=== PATIENT | male | born 1970 | race Caucasian/White ===

== ENCOUNTER 2018-03-05 16:48 | Observation (INO) ==
--- NOTE | 2018-03-05 16:59 | ERNOTE ---
Date of Service: 03/05/18 Time Seen by Provider: 03/05/18 16:59 Stated Complaint: cough/back pain Source: patient, family Exam Limitations: no limitations Immunizations: IMMUNIZATION HX Immunizations Up to Date Yes History of Influenza Vaccine No Hx Pneumococcal Vaccination No Allergies/Adverse Reactions: Allergies No Known Allergies Allergy (Verified 03/05/18 18:54) Home Medications: HOME MEDICATIONS aspirin 81 mg tablet,delayed release 81 mg PO DAILY #30 tab 12/11/17 [Last Taken 03/05/18 07:00] sertraline 50 mg tablet 50 mg PO DAILY #30 tab 12/11/17 [Last Taken 03/03/18 21:00] atorvastatin 40 mg tablet 40 mg PO DAILY #30 tab 02/27/18 [Last Taken Unknown] meloxicam 7.5 mg tablet 7.5 mg PO DAILY PRN #30 tab 02/27/18 [Last Taken 03/05/18 07:00] omega-3 fatty acids-fish oil 360 mg-1,200 mg capsule 2 cap PO DAILY 02/27/18 [Last Taken 03/05/18 07:00] - Pain Score Pain Score #1 Pain Score: 3 - History of Present Ilness Narrative: The patient is a 47 year old male who presents for sternal chest pain which has been present since 1100 today. There are associated symptoms of mid back pain and fatigue. The patient reports pain as heaviness or pressure to sternal chest, 3/10. There are no alleviating factors. There are no aggravating factors. Previous treatments have included: none. The past medical history includes: HTN, arthritis, HLD, low testosterone and hypertriglyceridemia. The social history is positive for current smoke and chew tobacco. The patient has had no ill contacts. Patient states pain began today while at work, patient denies injury or strenuous activity. Patient states pain began to left medial breast and then seemed to move to right medial breast and overlying sternum. Patient states that pain seems to radiate through to middle of back. Patient states he has also has symptoms of lightheadedness, denies near syncope. Patient also fatigued, states flattened affect is not typical for patient. Timing: constant Frequency/Possible Cause: Reports: no prior episodes Modifying Factors - Improves: Reports: nothing Modifying Factors - Worsens: Reports: nothing Associated Symptoms: Reports: chest pain/soreness, cough - intermittent, shortness of breath, lightheadedness. Denies: nasal congestion, nasal drainage, headache, sore throat, fever/chills Review of Systems - Review of Systems Constitutional: Present: fatigue. Absent: recent illness, fever EYE: Present: no symptoms reported. Absent: vision changes ENT: Present: no symptoms reported. Absent: ear pain, nasal drainage, sore throat Respiratory: Present: shortness of breath, cough Cardiology: Present: chest pain. Absent: syncope, edema Gastrointestinal/Abdominal: Present: no symptoms reported. Absent: nausea, vomiting, diarrhea, abdominal pain Genitourinary: Present: no symptoms reported. Absent: frequency, dysuria Musculoskeletal: Present: back pain. Absent: neck pain Skin: Present: no symptoms reported. Absent: rash Neurological: Present: dizziness/light-headedness. Absent: weakness, numbness Endocrine: Present: no symptoms reported Hematologic/Lymphatic: Present: no symptoms reported Psych: Present: no symptoms reported All Other Systems: All systems neg except as marked Medical History (Last Reviewed 03/05/18 @ 17:14 by JASPREET Nguyen) Arthritis HTN (hypertension) Hyperlipidemia Hypertriglyceridemia Hypogonadism in male Low testosterone in male Palsy, Martinez's Surgical History: Surgical History (Last Reviewed 03/05/18 @ 17:14 by JASPREET Nguyen) H/O arthroscopic knee surgery History of hernia repair Family History: Family History (Last Reviewed 03/05/18 @ 17:14 by JASPREET Nguyen) Mother CKD (chronic kidney disease), stage III Heart disease Diabetes Father Alive and well Social History: Preferred Language Citizen Of [place] Do you have any orthodox or No cultural preference? Smoking Status Current every day smoker Have you smoked in the past 12 Yes months Do you dip or chew tobacco Yes Abuse History No History of abuse Psych History No pertinent hx Alcohol Use rarely Drug Use none Physical Exam - Physical Exam General Appearance: Present: wd/wn, alert, no apparent distress, obese Head Exam: Present: normal inspection Eye Exam: Normal inspection: bilateral, PERRL: bilateral, EOMI: bilateral Ears, Nose, Throat: Present: normal ENT inspection, normal pharynx, other - tobacco residue to oral mucosa Neck: Present: normal inspection, nontender Respiratory: Present: no respiratory distress, normal breath sounds, lungs clear, chest tenderness - mild over sternum Cardiovascular/Chest: Present: regular rate, rhythm, no murmur Gastrointestinal/Abdominal: Present: normal bowel sounds, nontender, soft, no organomegaly, other - abdominal obesity Back Exam: Present: no vertebral tenderness Extremity Exam: Absent: pedal edema, calf tenderness Neurological Exam: Present: alert, oriented, normal mood/affect Skin Exam: Present: normal color, warm/dry ED Progress - Date and Time Seen: Date and Time: 03/05/2018 18:00 Patient reports sternal chest pain, 09/27. Will attempt Nitro. 03/05/18 18:08 Discussed with complaint of findings, plan for observation admission for chest pain. - Results and Orders Patient's Lab Results:: I have reviewed the patient's lab results. - Vital Signs Patient's Vital Signs:: I have reviewed the patient's vital signs. Vital Signs: Vital Signs 03/05/18 16:49 Temperature 36.5 C Pulse Rate 81 Respiratory Rate 14 Blood Pressure 126/83 O2 Sat by Pulse Oximetry 97 - EKG EKG: NSR EKG read: Reviewed by me EKG Comments: Reviewed with . - X-Ray X-Ray #1 X-Ray: chest Interpretation: Reviewed by me X-ray Comments: No acute cardiopulmonary abnormality. - Progress/Reassessment Chief Complaint: Cough Departure Clinical Impression: Chest pain Qualifiers: Chest pain type: unspecified Qualified Code(s): R07.9 - Chest pain, unspecified - Departure Disposition: Still a patient Condition: Stable
[2018-03-05] MEDS ORDERED: ASPIRIN 81 MG TAB.CHEW PO ONE (17:12)
[2018-03-05] MEDS ORDERED: ASPIRIN 81 MG TAB.CHEW ONE (17:17)
[2018-03-05 17:26] LABS: Hematocrit 44.8 % (42.0-52.0); Hemoglobin 14.8 gm/dL (13.5-18.0); Mean Corpuscular Hemoglobin 29.7 pg (27-31); Mean Platelet Volume 9.7 fl (8-11.3); Neutrophil # 6.7 K/mm3 (1.3-6.0); Neutrophil % 72.3 % (42-75.0); Platelet Count 189 K/mm3 (150-450); Red Blood Count 4.98 M/mm3 (4.7-6.0); Red Cell Distribution Width 13.2 % (11.5-14.0); White Blood Count 9.3 K/mm3 (4.0-10.5)
[2018-03-05 17:38] LABS: Prothrombin Time (Patient) 10.2 Seconds (9.0-11.0)
[2018-03-05 17:44] LABS: ALT 39 U/L (19-67); AST 23 U/L (0-48); Albumin * 3.9 gm/dl (3.4-5.0); Alkaline Phosphatase * 70 U/L (50-170); Anion Gap 9.2 mmol/L (6.8-13.8); BUN/Creatinine Ratio 18.2 (9.0-21.6); Bilirubin, Total 0.4 mg/dL (0.0-1.1); Blood Urea Nitrogen 18 mg/dL (6-23); Ca. Corrected For Albumin 8.6 mg/dL (8.4-10.2); Calcium * 8.8 mg/dL (7.9-10.9); Carbon Dioxide 26.5 mmol/L (24-32.6); Chloride 98 mmol/L (97-106); Glucose * 98 mg/dL (70-110); Potassium 3.7 mmol/L (3.4-4.6); Sodium 130 mmol/L (132-142); Total Protein 7.8 gm/dL (6.2-8.2)
[2018-03-05 17:45] LABS: Troponin I Less than 0.017 ng/mL (0.00-0.10)
[2018-03-05 17:49] LABS: INR 1.02 INR (0.90-1.10)
[2018-03-05] MEDS ORDERED: NITROGLYCERIN 0.4 MG/TAB BTL SL ONE (18:04)
--- NOTE | 2018-03-05 22:14 | HP ---
Chief Complaint - Chief Complaint Date of Service: 03/05/18 Time of Service: 21:30 Chief Complaint: Chest Pain, shortness of breath History of Present Illness: Rohit is a 47 yo male with significant cardiovascular risk factors of tobacco use, HTN, HLP, and first generation family hx of CAD (sister, mom). He began having left medial chest wall pain at around 11AM today. Pain moved to right chest and also into his back. He reports no exacerbating or alleviating factors. He continued to have chest heaviness over the noon hour and presented to the [facility] ER for further evaluation. He was given ASA and nitro in the ER which he reports helped to improve pain. Initial work up in the ER was negative for acute findings with normal EKG, chest xray, and labs. He reports he also had shortness of breath, diaphoresis, and fatigue. He denies change in medication, sick contacts, or change in activity. The only change from his routine was that at work yesterday they were using a process to clean the pain off plastic barrels which he reports caused a strong odor that made him feel ill. He also reports to having GERD and heartburn, but they do not usually feel like this. Medical History (Last Reviewed 03/05/18 @ 18:54 by Joselyn Segal RN) Arthritis HTN (hypertension) Hyperlipidemia Hypertriglyceridemia Hypogonadism in male Low testosterone in male Palsy, Martinez's Surgical History: Surgical History (Last Reviewed 03/05/18 @ 18:54 by Joselyn Segal RN) H/O arthroscopic knee surgery History of hernia repair Family History: Family History (Last Updated 03/05/18 @ 22:55 by Emmanuel Felix DO) Mother Diabetes CKD (chronic kidney disease), stage III Heart disease Father Alive and well Sister Myocardial infarction Social History: Patient Lives/Resources With Spouse Utilized Occupation receiver/laborer Preferred Language Montenegrin Do you have any episcopal or Yes: Oriental Orthodox cultural preference? Smoking Status Current every day smoker Have you smoked in the past 12 Yes months Do you dip or chew tobacco Yes Abuse History No History of abuse Psych History No pertinent hx Alcohol Use rarely Drug Use none Smokes 2-3 cigarettes/day Chews 3/4 can/day Review Of Systems (GEN) - Review of Systems Generalized/Overall Review: Present: Weakness, Diaphoresis, Fatigue. Absent: Chills, Fever EENTM: Present: No Symptoms Reported Respiratory: Present: Shortness of Breath. Absent: Cough Cardiac: Present: Chest Pain, Edema. Absent: Palpitations, Syncope Abdominal: Absent: Nausea, Vomiting, Abdominal Pain, Constipation, Diarrhea Genitourinary: Present: No Symptoms Reported Musculoskeletal: Present: No Symptoms Reported Neurological: Present: No Symptoms Reported Skin: Present: No Symptoms Reported Immunizations: IMMUNIZATION HX Immunizations Up to Date Yes History of Influenza Vaccine No Hx Pneumococcal Vaccination No Allergies/Adverse Reactions: Allergies Allergy/AdvReac Type Severity Reaction Status Date / Time No Known Allergies Allergy Verified 03/05/18 18:54 Home Medications: HOME MEDICATIONS aspirin 81 mg tablet,delayed release 81 mg PO DAILY #30 tab 12/11/17 [Last Taken 03/05/18 07:00] sertraline 50 mg tablet 50 mg PO DAILY #30 tab 12/11/17 [Last Taken 03/03/18 21:00] atorvastatin 40 mg tablet 40 mg PO DAILY #30 tab 02/27/18 [Last Taken Unknown] meloxicam 7.5 mg tablet 7.5 mg PO DAILY PRN #30 tab 02/27/18 [Last Taken 03/05/18 07:00] omega-3 fatty acids-fish oil 360 mg-1,200 mg capsule 2 cap PO DAILY 02/27/18 [Last Taken 03/05/18 07:00] Exam - Exam Vital Signs: Vital Signs - Last Taken Temp 36.2 C 03/05/18 19:09 Pulse 68 03/05/18 19:09 Resp 18 03/05/18 19:09 BP 107/61 03/05/18 19:09 Pulse Ox 96 03/05/18 19:09 Constitutional: Present: Alert, Oriented x3, Cooperative ENT Exam: Present: hearing grossly normal Eye Exam: bilateral eye: normal inspection Respiratory: Present: lungs clear, normal breath sounds Cardiovascular/Chest: Present: regular rate, rhythm, no murmur Peripheral Pulses: radial (R): 2+, radial (L): 2+ Abdomen: Present: Normal bowel sounds, soft, nontender, nondistended, no rebound tenderness Extremity: Present: lower extremity edema - 1+ Skin Exam: Present: normal color, warm/dry, no cyanosis Neurologic: Present: alert, normal mood/affect, oriented x 3 Appearance: Present: appropriate appearance, appropriate insight Eye contact: Present: cooperative, good eye contact, normal speech Thoughts: Present: normal thought pattern, no apparent hallucination Diagnostic Studies: Abnormal Lab Results 03/05/18 03/05/18 Range/Units 17:20 17:20 Neutrophils # 6.7 H (1.3-6.0) K/mm3 Sodium 130 L (132-142) mmol/L Laboratory Results WBC 9.3 K/mm3 (4.0-10.5) 03/05/18 17:20 RBC 4.98 M/mm3 (4.7-6.0) 03/05/18 17:20 Hgb 14.8 gm/dL (13.5-18.0) 03/05/18 17:20 Hct 44.8 % (42.0-52.0) 03/05/18 17:20 MCV 90.0 fl (78-100) 03/05/18 17:20 MCH 29.7 pg (27-31) 03/05/18 17:20 MCHC 33.0 g/dl (32-36) 03/05/18 17:20 RDW 13.2 % (11.5-14.0) 03/05/18 17:20 Plt Count 189 K/mm3 (150-450) 03/05/18 17:20 MPV 9.7 fl (8-11.3) 03/05/18 17:20 Immature Gran % (Auto) 0.30 % (0.001-0.429) 03/05/18 17:20 Immature Gran # (Auto) 0.03 K/mm3 (0.000-0.0310) 03/05/18 17:20 Neutrophils % 72.3 % (42-75.0) 03/05/18 17:20 Lymphocytes % 20.6 % (20-51) 03/05/18 17:20 Monocytes % 5.3 % (0.0-9) 03/05/18 17:20 Eosinophils % 1.4 % (0.0-3.0) 03/05/18 17:20 Basophils % 0.1 % (0.0-1.0) 03/05/18 17:20 Nucleated RBC % 0.0 k/mm3 (0-1) 03/05/18 17:20 Neutrophils # 6.7 K/mm3 (1.3-6.0) H 10/16/18 17:20 Lymphocytes # 1.92 k/mm3 (1.5-3.5) 03/05/18 17:20 Monocytes # 0.5 k/mm3 (0.0-1.0) 03/05/18 17:20 Eosinophils # 0.1 k/mm3 (0.0-0.7) 03/05/18 17:20 Absolute Basophils 0.0 k/mm3 (0.0-0.1) 03/05/18 17:20 PT 10.2 Seconds (9.0-11.0) 03/05/18 17:20 INR (Anticoag Therapy) 1.02 INR (0.90-1.10) 03/05/18 17:20 PTT (Joan) 27.0 Seconds (24-32) 03/05/18 17:20 Sodium 130 mmol/L (132-142) L 03/05/18 17:20 Plasma Sodium 130 mmol/L (130-142) 03/05/18 17:20 Potassium 3.7 mmol/L (3.4-4.6) 03/05/18 17:20 Chloride 98 mmol/L (97-106) 03/05/18 17:20 Carbon Dioxide 26.5 mmol/L (24-32.6) 03/05/18 17:20 Anion Gap 9.2 mmol/L (6.8-13.8) 03/05/18 17:20 BUN 18 mg/dL (6-23) 03/05/18 17:20 Creatinine 0.99 mg/dL (0.4-1.4) 03/05/18 17:20 Est GFR (Non-Af Amer) 87 mL/min (60-130) 03/05/18 17:20 BUN/Creatinine Ratio 18.2 (9.0-21.6) 03/05/18 17:20 Random Glucose 98 mg/dL (70-110) 03/05/18 17:20 Calcium 8.8 mg/dL (7.9-10.9) 03/05/18 17:20 Calcium Adj for Albumin 8.6 mg/dL (8.4-10.2) 03/05/18 17:20 Total Bilirubin 0.4 mg/dL (0.0-1.1) 03/05/18 17:20 AST 23 U/L (0-48) 03/05/18 17:20 ALT 39 U/L (19-67) 18 17:20 Alkaline Phosphatase 70 U/L (50-170) 03/05/18 17:20 Troponin I Less than 0.017 ng/mL (0.00-0.10) 03/05/18 17:20 Total Protein 7.8 gm/dL (6.2-8.2) 03/05/18 17:20 Albumin 3.9 gm/dl (3.4-5.0) 03/05/18 17:20 Assessment/Plan - Assessment/Plan (1) Chest pain Assessment: Rohit is a 47yo male with: 1) Chest Pain - Initial evaluation is negative for Acute STEMI with no acute EKG changes, normal troponin, and normal chest xray. Will admit to observation, repeat troponin, and monitor on telemetry. Based on history of hypertension, hyperlipidemia, and use of tobacco, along with age he has 4 points on the HEART Score Study. This gives him approximately a 15% risk of adverse cardiac event and indicates he should be monitored in the hospital. If he has no evidence of cardiac injury I recommend he get further outpatient stress testing with a Nuclear Treadmill Stress Test. He will be followed tomorrow by his Primary Care Physician, Dr. Barrett. Problem: Acute Qualifiers: Chest pain type: unspecified Qualified Code(s): R07.9 - Chest pain, unspecified
--- NOTE | 2018-03-06 07:42 | PN ---
Progesmoses Note - Interim Date: 03/06/18 Time: 07:38 Narrative: 03/06/18 07:38 Patient seen and examined. His sharp chest pain has improved. He was given several medications since he arrived at the hospital, and he can not tell which medication was helpful. Not SOB. No recent URI. Notified by nursing that he has had several skipped beats on telemetry. He was asymptomatic at the time. Original EKG showed NSR. Repeating EKG and troponin, which has thus far been negative. Pain is reproducible with pressure applied to sternum.
--- NOTE | 2018-03-06 08:43 | DS ---
(1) Chest pain Problem: Acute Qualifiers: Chest pain type: intercostal pain Qualified Code(s): R07.82 - Intercostal pain Description of Stay: Patient was at work, and develop sharp left sided chest pain that eventually moved to the right side, and then to his back. Has never had this before. His reports he looked ashen. Denies nausea, shortness of breath, or syncope. Negative troponin, and no signs of ischemia or infarct on EKG. Staff reported skipped beats on telemetry overnight, and EKG and troponin were repeated. He was still in sinus rhythm with no skipped beats. Case discussed with the on- call trout farmer, Dr. Medley. Will discharge and obtain exercise treadmill and sleep study. He was strongly advised to stop tobacco, and optimize diet and exercise. Procedures Performed: none Results and Findings: Lab Pending Results 03/05/18 17:20: WBC 9.3, RBC 4.98, Hgb 14.8, Hct 44.8, MCV 90.0, MCH 29.7, MCHC 33.0, RDW 13.2, Plt Count 189, MPV 9.7, Immature Gran % (Auto) 0.30, Immature Gran # (Auto) 0.03, Neutrophils % 72.3, Lymphocytes % 20.6, Monocytes % 5.3, Eosinophils % 1.4, Basophils % 0.1, Nucleated RBC % 0.0, Neutrophils # 6.7 H, Lymphocytes # 1.92, Monocytes # 0.5, Eosinophils # 0.1, Absolute Basophils 0.0 03/05/18 17:20: PT 10.2, INR (Anticoag Therapy) 1.02, PTT (Joan) 27.0 03/05/18 17:20: Sodium 130 L, Plasma Sodium 130, Potassium 3.7, Chloride 98, Carbon Dioxide 26.5, Anion Gap 9.2, BUN 18, Creatinine 0.99, Est GFR (Non-Af Amer) 87, BUN/Creatinine Ratio 18.2, Random Glucose 98, Calcium 8.8, Calcium Adj for Albumin 8.6, Total Bilirubin 0.4, AST 23, ALT 39, Alkaline Phosphatase 70, Troponin I Less than 0.017, Total Protein 7.8, Albumin 3.9 03/06/18 00:40: Troponin I Less than 0.017 03/06/18 07:45: Troponin I Less than 0.017 Discharge Location: Home Disposition: Home self-care Condition: Good Discharge Activity: Activity as tolerated Discharge Diet: General/regular food Referrals: Beata Barrett DO [Primary Care Provider] - Additional Patient Instructions (free text): Consult Dr. Medley for chest pain and abnormal telemetry (possible intermittent Mobitz Type II) with a week Prescriptions (Any new or edited meds): Naproxen 250 mg PO DAILY 30 Days #30 tablet Complete Home Medications List: Complete Home Medication List: aspirin 81 mg tablet,delayed release 81 mg PO DAILY #30 tab 12/11/17 sertraline 50 mg tablet 50 mg PO DAILY #30 tab 12/11/17 atorvastatin 40 mg tablet 40 mg PO DAILY #30 tab 02/27/18 omega-3 fatty acids-fish oil 360 mg-1,200 mg capsule 2 cap PO DAILY 02/27/18 Naproxen 250 mg PO DAILY 30 Days #30 tablet 03/06/18 Amb Orders for Discharge: Regular Exercise Stress Test Time Frame: 1 Week, Location: Respiratory Therapy Sleep Study w\ Titration Time Frame: 2 Weeks, Location: Sleep Lab
[2018-03-06] MEDS ORDERED: ASPIRIN 81 MG TABLET.DR PO SCH (09:00)
[2018-03-06 09:59] VITALS: BP 111/72
[2018-03-06] MEDS ORDERED: ROSUVASTATIN CALCIUM 20 MG TABLET PO SCH (21:00)
== END 2018-03-06 10:58 | disposition home or self-care (01) ==
LOC: ER 16:48 → MS 16:48
PROVIDERS: ADMIT Family Medicine; ATTEND Family Medicine
CPT/HCPCS: 36415; 71020; 71046; 80053; 84484; 85025; 85610; 85730; 93005; 99285